=== PATIENT | female | born 1980 | race Asian ===

== ENCOUNTER 2016-07-29 06:18 | Emergency (ER) | payer OTHER ==
[~2016-07-29] VITALS: Ht 167.6 cm; Wt 102.0 kg
[~2016-07-29 06:18] MED LIST: CALCIUM PO; CYAN100028 PO; HYDR-882 PO; IRON PO
[2016-07-29 07:03] LABS: HEMOGLOBIN 14.4 g/dL (11.7-16.4)
[2016-07-29 07:10] LABS: BLOOD UREA NITROGEN 13 mg/dL (7-18)
[2016-07-29 07:40] VITALS: BP 129/74
== END 2016-07-29 07:43 | disposition home or self-care (01) ==
LOC: ED 07:32
DX: R42 Dizziness and giddiness (principal)
CPT/HCPCS: 36415; 80048; 82040; 85025; 93005; 99285

== ENCOUNTER 2016-08-10 02:12 | Emergency (ER) | payer OTHER ==
[~2016-08-10] VITALS: Ht 167.6 cm; Wt 100.4 kg
[2016-08-10] MEDS ORDERED: ESTR1PAT79 TD (02:29)
[2016-08-10] MEDS ORDERED: SODIUM CHLORIDE 0.9% 1,000ML IVBOLUS ONE (03:00)
[2016-08-10 03:12] LABS: BLOOD UREA NITROGEN 10 mg/dL (7-18)
[2016-08-10 04:13] VITALS: BP 132/87
== END 2016-08-10 04:14 | disposition home or self-care (01) ==
LOC: ED 02:27
DX: R42 Dizziness and giddiness (principal)
CPT/HCPCS: 36415; 71010; 80048; 82040; 85025; 93005; 96360; 99285; J7030